=== PATIENT | female | born 1985 | race Caucasian/White ===

== ENCOUNTER 2023-10-11 10:52 | Emergency (ER) | payer BC ==
--- OUTSIDE RECORDS SUMMARY | 2023-10-11 10:55 | XMS REPORT | Continuity of Care Document ---
Author Name Unknown Address [address] [facility] [address] [place] [address] [facility] Address [address] [facility] [address] [place] [address] Care Team Providers Care Senior Buyer Planner Name Role Phone Harris Nazario Primary Care Physician [phone] RODNEY DIAZ Attending Clinician Unavailable APARNA KHAN Attending Clinician Unavailable KEYON CROWLEY Attending Clinician Unavailable MINDA RUIZ Attending Clinician Unavailab MINDA Spring Attending Clinician Unavailab JIMMIE Collins Attending Clinician Unavailable JIMMIE THORNTON Attending Clinician Unavailable CAMPBELL QUINTANILLA Attending Clinician Unavailable LULY SERNA Attending Clinician Unavailab le LAB90 Attending Clinician Unavailable SUELLEN RENO Attending Clinician Unavailable ANAHI ALEXANDRA Attending Clinician Unavailab diane SUBRAMANIAN MD Attending Clinician Unavailab JOSÉ ANTONIO Stanton Attending Clinician Unavailable OC GONZALEZ Attending Clinician Unavailable [facility] Attending Clinician Unavailable DANYELL FLORES II Attending Clinician Unavailab TRACY Zhong Attending Clinician Unavail able LEONEL PATRICIA Attending Clinician Unavailable COLLIN MADISON Attending Clinician Unavailable Collin Hilliard Attending Clinician Annmarie REARDON Deepa Dobson Attending Clinician Oz Clemente MD Attending Clinician [phone] Oz Clemente MD Admitting Clinician [phone] Payers Payer Name Policy Type Policy Number Effective Date Expirati on Date Source [employer] [place] OUT OF STATE [id number] 2017 00:00:00 BCBS 2 [id number] 2022 00:00:00 Problems Condition Name Condition Details Condition Category Status Onset Date Resolution Date Last Treatment Date Treating Clinician Comments Source Acute left-sided low back pain with left-sided sciatica Acute left-sided low back pain with left-sided sciatica Disease Active 10-10 00:00: 00 Lee Ann Larsen - Externa l Numbness of left lower extremity Numbness of left lower extremity Disease Active 10-10 00:00: 00 Lee Ann Larsen - Externa l Hair loss Hair loss Disease Active 08-15 00:00: 00 Lee Ann Masseyold - Externa l Skin cancer screening Skin cancer screening Disease Active 08-15 00:00: 00 Lee Ann Masseyold - Externa l Obesity Obesity Disease Active 09-14 00:00: 00 Lee Ann Sejonaold - Externa l Achilles tendinitis of right lower extremity Achilles tendinitis of right lower extremity Disease Active 09-14 00:00: 00 Lee Ann Masseyold - Externa l Acute pain of right knee Acute pain of right knee Disease Active 09-14 00:00: 00 Lee Ann Sejonaold - Externa l Measles, mumps, rubella (MMR) vaccinatio n status unknown Measles, mumps, rubella (MMR) vaccinatio n status unknown Disease Active 09-27 00:00: 00 [facility] History of depression History of depression Disease Active 09-27 00:00: 00 [facility] Headache after spinal puncture Headache after spinal puncture Disease Active 09-27 00:00: 00 [facility] 39 weeks gestation of 39 weeks gestation of Disease Active 09-26 00:00: 00 [facility] Short interval between pregnancie s affecting , antepartum Short interval between pregnancie s affecting , antepartum Disease Active 06-01 00:00: 00 [facility] Family history of congenital heart defect Family history of congenital heart defect Disease Active 06-01 00:00: 00 [facility] History of allergy to penicillin History of allergy to penicillin Disease Active 10-14 00:00: 00 [facility] History of allergy to penicillin History of allergy to penicillin Disease Active 10-14 00:00: 00 [facility] History of allergy to penicillin History of allergy to penicillin Disease Active 10-14 00:00: 00 [facility] 38 weeks gestation of 38 weeks gestation of Disease Active 09-15 00:00: 00 [facility] Obesity affecting in third trimester Obesity affecting in third trimester Disease Active 09-15 00:00: 00 [facility] Liveborn by vaginal delivery Liveborn infant by vaginal delivery Disease Active 09-15 00:00: 00 [facility] (spontaneo us vaginal delivery) (spontaneo us vaginal delivery) Disease Active 09-15 00:00: 00 [facility] (spontaneo us vaginal delivery) (spontaneo us vaginal delivery) Disease Active 09-15 00:00: 00 [facility] malpresent ation malpresent ation Disease Resolve d 09-15 00:00: 00 2017-09-16 00:00:00 2017-09-16 11:37:25 [facility] Unstable lie of fetus Unstable lie of fetus Disease Resolve d 09-15 00:00: 00 2017-09-16 00:00:00 2017-09-16 11:37:19 [facility] Obesity (BMI 30-39.9) Obesity (BMI 30-39.9) Disease Resolve d 09-15 00:00: 00 2017-09-16 00:00:00 2017-09-16 11:37:24 [facility] Allergies, Adverse Reactions, Alerts Allergy Name Allergy Type Status Severity Reaction(s) Onset Date Inactive Date Treating Clinician Comments Source Penicill in Propensi ty to adverse reaction s Active Anaphylaxis 09-15 00:00: 00 [facility] PENICILL IN DRUG INGREDI Active Anaphylaxis 09-15 00:00: 00 [facility] Penicill in Propensi ty to adverse reaction s Active Anaphylaxis 09-15 00:00: 00 [facility] Penicill in G Propensi ty to adverse reaction s Active Anaphylaxis 09-15 00:00: 00 Lee Ann Larsen - Externa l Social History Social Habit Start Date Stop Date Quantity Comments Source ASSERTION 2018-01-04 00:00:00 [facility] Gender identity Marie Larsen - External [facility] to SARS-CoV-2 (event) Not sure [facility] Alcoholic beverage intake 2023-10-09 00:00:00 2023-10-09 00:00:00 Current non-drinker of alcohol (finding) [facility] Alcohol intake 2023-03-21 00:00:00 2023-03-21 00:00:00 Ex-drinker (finding) Lee Ann Larsen - External History of Social function 2018-09-25 00:00:00 2018-09-25 00:00:00 [facility] Alcohol Comment 2018-03-09 00:00:00 2018-03-09 00:00:00 social [facility] Tobacco use and exposure 2017-09-15 00:00:00 2017-09-15 00:00:00 Smokeless tobacco non-user [facility] Sex assigned at 1985 00:00:00 1985 00:00:00 Tarun Larsen - External Smoking Status Start Date Stop Date Source Never smoked tobacco [facility] Medications Ordered Medication Name Filled Medication Name Start Date Stop Date Current Medication? Ordering Clinician Indication Dosage Frequency Signature (SIG) Comments Components Source diazePAM (Valium) 5 MG oral Tablet 10-10 10:39: 42 Yes 437 5mg [id number] 3D Take 1 tablet (5 mg total) by mouth every 8 hours as needed. Indication s: Muscle Spasm Lee Ann Larsen - Blanka luis fernando Naproxen 500 MG oral Tablet Delayed Response 10-10 10:39: 21 Yes 49 500mg Take 1 tablet (500 mg total) by mouth in the morning and 1 tablet (500 mg total) in the evening. Take with meals. Indication s: Pain. Lee Ann Parsona luis fernando HYDROcodone -Acetaminop hen ([place]) 10-325 MG oral Tablet 10-10 10:39: 07 Yes 1{tbl} Q.[id number] 3D Take 1 tablet by mouth every 8 hours as needed for pain. Lee Ann gould Lidocaine (LIDOCARE) 4 % patch 1 Patch 10-08 21:30: 00 10-09 09:29 :00 Yes 1{patch } 1 Patch, Topical, Administer over 12 Hours, ONCE, 1 dose, On 10/09/23 at 1630, Routine [facility] methocarbam oL (ROBAXIN) tablet 1,000 mg 10-08 20:45: 00 10-08 20:36 :00 No 1000mg 1,000 mg, Oral, ONCE, 1 dose, On 10/09/23 at 1545, JARRETT [facility] FENTanyl PF (SUBLIMAZE (PF)) injection 100 mcg 10-08 20:00: 00 10-08 19:12 :00 No 100ug 100 mcg, Intramuscu lar, ONCE, 1 dose, On 10/09/23 at 1500, Routine [facility] gabapentin (NEURONTIN) capsule 300 mg 10-08 19:15: 00 10-08 19:13 :00 No 300mg 300 mg, Oral, ONCE, 1 dose, [facility]09[facility]15[facility] (SUBLIMAZE (PF)) injection 50 mcg 10-08 18:15: 00 10-08 17:34 :00 No 50ug 50 mcg, Intramuscu lar, ONCE, 1 dose, On Tue10/09/23 at 1315, Routine [facility] diazePAM (VALIUM) tablet 5 mg 10-08 17:30: 00 10-08 17:34 :00 No 5mg 5 mg, Oral, ONCE, 1 dose, On Tue10/09/23 at 1230, JARRETT [facility] dexamethaso ne sod phos PF injection 10 mg 10-08 17:30: 00 10-08 17:33 :00 No 10mg 10 mg, Oral, ONCE, 1 dose, On Tue10/09/23 at 1230, 1 mL [facility] methocarbam oL 1,000 mg Tab 10-08 00:00: 00 Yes [id number] 1000mg Take 1,000 mg by mouth every 6 (six) hours as needed for Pain (scale 1-3). [facility] FENTanyl PF (SUBLIMAZE (PF)) injection 50 mcg 10-06 05:45: 00 10-06 04:53 :00 No 50ug 50 mcg, Slow IV Push, ONCE, 1 dose, On Tue10/07/23 at 0045, Routine [facility] iopamidol (ISOVUE 370-500 mL) injection 100 mL 10-06 05:30: 00 10-06 05:30 :00 No [id number] 100mL 100 mL, Intravenou s, ONCE, 1 dose, On Tue10/07/23 at 0030, Routine [facility] FENTanyl PF (SUBLIMAZE (PF)) injection 50 mcg 10-06 04:45: 00 10-06 03:50 :00 No 50ug 50 mcg, Slow IV Push, ONCE, 1 dose, On Tue10/06/23 at 2345, JARRETT [facility] diazePAM (VALIUM) injection 5 mg 10-06 01:45: 00 10-06 03:00 :00 No 5mg 5 mg, Slow IV Push, ONCE, 1 dose, On Tue10/06/23 at 2045, STAT [facility] dexamethaso ne sod phos PF injection 10 mg 10-06 01:45: 00 10-06 02:59 :00 No 10mg 10 mg, Slow IV Push, ONCE, 1 dose, On Jessy 10/06/23 at 2044, 1 mL [facility] diazePAM 5 mg tablet 10-06 00:00: 00 Yes [id number] 5mg Take 1 tablet by mouth 3 (three) times daily as needed for Muscle Spasms. [facility] naproxen sodium 550 mg tablet 10-06 00:00: 00 Yes [id number] 550mg Take 1 tablet by mouth in the morning and 1 tablet in the evening. Take with meals. [facility] HYDROcodone -acetaminop hen 10-325 mg tablet 10-06 00:00: 00 10-14 04:59 :00 Yes [id number] 1{tbl} Take 1 tablet by mouth every 6 (six) hours as needed for Pain (scale 7-10) for up to 7 days. Indication s: acute pain [facility] methylPREDN ISolone (Medrol) 4 MG oral Tablet Therapy Pack 09-18 00:00: 00 10-10 00:00 :00 No [id number] 1{navin} QD Take 1 navin by mouth daily As directed. Lee Ann gould Gabapentin 100 MG oral Capsule 09-18 00:00: 00 10-10 00:00 :00 No [id number] 100mg Q.[id number] 3D Take 1 capsule (100 mg total) by mouth 3 times daily as needed. Lee Ann gould Tizanidine HCl 4 MG oral Tablet 09-18 00:00: 00 10-10 00:00 :00 No [id number] 4mg Q.[id number] 3D Take 1 tablet (4 mg total) by mouth every 8 hours as needed for muscle spasms. Lee Ann gould Semaglutide -Weight Management (Wegovy) 1.7 MG/0.75ML subcutaneou s Solution Auto-inject or 4-08 00:00: 00 Yes [id number] 1.7mg Q1W Inject 1.7 mg into the skin once a week. Lee Ann gould Pseudoeph-B romphen-DM 30-2-10 MG/5ML oral Syrup 1-25 00:00: 00 08-15 00:00 :00 No [id number] 10mL Q.25D Take 10 mL by mouth 4 times daily as needed. Lee Ann gould methylPREDN ISolone (Medrol) 4 MG oral Tablet Therapy Pack - 00:00: 00 08-15 00:00 :00 No [id number] 1{navin} Take 1 navin by mouth daily As directed. Lee Ann gould Semaglutide -Weight Management (Wegovy) 1.7 MG/0.75ML subcutaneou s Solution Auto-inject or 23 00:00: 00 Yes [id number] 1.7mg Inject 1.7 mg into the skin once a week. Lee Ann gould Semaglutide -Weight Management (Wegovy) 1 MG/0.5ML subcutaneou s Solution Auto-inject or 2022-03 00:00: 00 Yes [id number] 1mg Inject 1 mg into the skin once a week. Lee Ann gould Semaglutide -WEGOVY-Cornelius ght Management 0.5 MG/0.5ML Subcutaneou s Solution Auto-inject or 2022-03 018 00:00: 00 Yes [id number] .5mg Inject 0.5 mg into the skin once a week. Lee Ann gould Semaglutide -WEGOVY-Cornelius ght Management 0.25 MG/0.5ML Subcutaneou s Solution Auto-inject or 2022-03 0-11 00:00: 00 12-22 00:00 :00 No [id number] .25mg Inject 0.25 mg into the skin once a week. Lee Ann gould Semaglutide -WEGOVY-Cornelius ght Management 0.25 MG/0.5ML Subcutaneou s Solution Auto-inject or 09-14 00:00: 00 Yes [id number] .25mg Inject 0.25 mg into the skin once a week Lee Ann golud Naproxen 500 MG oral Tablet 09-02 00:00: 00 Yes [id number] 105 500mg Take 1 tablet (500 mg total) by mouth in the morning and 1 tablet (500 mg total) in the evening. Take with meals. Lee Ann gould HYDROcodone -acetaminop hen (NORCO 5) 5-325 mg tablet 1 tablet 11-19 23:00: 00 11-19 22:20 :00 No 1{tbl} 1 tablet, Oral, ONCE, 1 dose, Tue11/20/19 at 1800, JARRETT [facility] acetaminoph en-codeine 300-30 mg tablet 11-19 00:00: 00 Yes [id number] 1{tbl} Take 1 tablet by mouth every 4 (four) hours as needed for Pain (scale 4-6). Indication s: acute pain [facility] acetaminoph en (TYLENOL) 325 mg tablet 09-28 14:18: 29 09-28 00:00 :00 No Take by mouth every 6 (six) hours as needed. [facility] Iron Fum & P-FA-Vit B & C No.9 (INTEGRA PLUS) 125 mg iron- 1 mg Cap 09-28 00:00: 00 Yes [id number] 1{capsu le} Take 1 capsule by mouth daily. [facility] docusate calcium 240 mg capsule 09-28 00:00: 00 Yes [id number] 240mg Take 1 capsule by mouth once daily as needed for Constipati on. [facility] ibuprofen 600 mg tablet 09-28 00:00: 00 Yes [id number] 600mg Take 1 tablet by mouth every 6 (six) hours as needed for Pain (scale 1-3) or Pain (scale 4-6) (Pain). Take with food or milk. [facility] butalbital- acetaminoph en-caff 50-325-40 mg tablet 09-28 00:00: 00 Yes [id number] 1{tbl} Take 1 tablet by mouth every 6 (six) hours as needed for Pain (scale 7-10) (headache) . [facility] Iron Fum & P-FA-Vit B & C No.9 (INTEGRA PLUS) 125 mg iron- 1 mg Cap 09-28 00:00: 00 Yes [id number] 1{capsu le} Take 1 capsule by mouth daily. [facility] butalbital- acetaminoph en-caff (ESGIC) 50-325-40 mg tablet 1 tablet 09-27 23:00: 00 Yes 1{tbl} 1 tablet, Oral, Q4H, First dose on Tue09/27/18 at 1800, Until Discontinu ed, Routine [facility] butalbital- acetaminoph en-caff (ESGIC) 50-325-40 mg tablet 1 tablet 09-27 08:21: 01 Yes 1{tbl} 1 tablet, Oral, Q4HPRN, Starting Tue09/27/18 at 0321, Until Discontinu ed, Routine, Headache [facility] butalbital- acetaminoph en-caff (ESGIC) 50-325-40 mg tablet 1 tablet 09-27 04:20: 00 09-27 04:30 :00 No 1{tbl} 1 tablet, Oral, ONCE, 1 dose, Tue09/26/18 at 2330, Routine [facility] diphenhydrA MINE (BENADRYL) tablet 25 mg 09-26 23:09: 03 Yes 25mg 25 mg, Oral, Q6HPRN, Starting Tue09/26/18 at 1809, Until Discontinu ed, Routine, Sleep, Itching [facility] ondansetron (ZOFRAN (PF)) injection 4 mg 09-26 23:09: 03 Yes 4mg 4 mg, Slow IV Push, Q8HPRN, Starting Tue09/26/18 at 1809, Until Discontinu ed, Routine, Nausea and Vomiting (N/V) [facility] simethicone (GAS RELIEF) chewable tablet 160 mg 09-26 23:09: 03 Yes 160mg 160 mg, Oral, PC+HSPRN, Starting Tue09/26/18 at 1809, Until Discontinu ed, Routine, Gas [facility] docusate calcium (SURFAK) capsule 240 mg 09-26 23:09: 03 Yes 240mg 240 mg, Oral, QDAILYPRN, Starting Tue09/26/18 at 1809, Until Discontinu ed, Routine, Constipati on [facility] magnesium hydroxide (MILK OF MAGNESIA) 400 mg/5 mL suspension 30 mL 09-26 23:09: 03 Yes 30mL 30 mL, Oral, QDAILYPRN, Starting Tue09/26/18 at 1809, Until Discontinu ed, Routine, Constipati on [facility] acetaminoph en (TYLENOL) tablet 650 mg 09-26 23:09: 02 Yes 650mg 650 mg, Oral, Q6HPRN, Starting Tue09/26/18 at 1809, Until Discontinu ed, Routine, Pain (scale 1-3) [facility] benzocaine- menthol (DERMOPLAST ) 20-0.5 % topical spray 09-26 23:09: 02 Yes Topical, PRN, Starting Tue09/26/18 at 1809, Until Discontinu ed, Routine, Perineum discomfort [facility] ibuprofen (IBU) tablet 600 mg 09-26 22:41: 36 Yes 600mg 600 mg, Oral, Q6HPRN, Starting Tue09/26/18 at 1741, Until Discontinu ed, Routine, Pain (scale 4-6) [facility] LR 1000 mL + oxytocin 20 units IV Solution 09-26 22:15: 00 09-26 23:09 :07 No at 999 mL/hr, IV Infusion, ONCE, 1 dose, [facility] 09/26/18 at 1715, Routine [facility] lactated ringers IV infusion 500 mL 09-26 21:30: 00 09-26 20:28 :00 No 500mL at 999 mL/hr, 500 mL, IV Infusion, ONCE, 1 dose, 09/26/18 at 1630, Routine [facility] LR 1000 mL + oxytocin 20 units IV Solution 09-26 13:19: 04 09-26 23:09 :07 No 2mU/min 2 angel-unit s/min (6 mL/hr), at 6 mL/hr, IV Infusion, TITRATE, Starting 09/26/18 at 0819, Until 09/26/18 at 1809, JARRETT, Oxytocin Induction / Augmentati on of Labor. [facility] D5W-LR IV infusion 1,000 mL 09-26 13:00: 00 09-26 23:09 :07 No 1000mL at 125 mL/hr, IV Infusion, CONTINUOUS , Starting 09/26/18 at 0800, Until 09/26/18 at 1809, Routine [facility] sodium citrate-cit wan acid (BICITRA) 500-334 mg/5 mL solution 30 mL 09-26 12:55: 08 09-26 20:23 :00 No 30mL 30 mL, Oral, PRE-PROCED URE ONCE, 1 dose, Starting 09/26/18 at 0755, Until Discontinu ed, Routine, Surgery/Pr ocedure [facility] vitamin w/FA tablet 09-16 00:00: 00 09-28 00:00 :00 No 1{tbl} Take 1 tablet by mouth daily. [facility] Immunizations Ordered Immunization Name Filled Immunization Name Date Status Comments Source Tdap- (Boostrix, Adacel) 2018-07-20 00:00:00 Completed Lee Ann Larsen - External Tdap- (Boostrix, Adacel) 2018-07-20 00:00:00 Completed Lee Ann Larsen - External Tdap- (Boostrix, Adacel) 2018-07-20 00:00:00 Completed Lee Ann Larsen - External Tdap- (Boostrix, Adacel) 2018-07-20 00:00:00 Completed Lee Ann Larsen - External TDAP 2018-07-20 00:00:00 Completed [facility] TDAP 2018-07-20 00:00:00 Completed [facility] TDAP 2018-07-20 00:00:00 Completed [facility] TDAP 2018-07-20 00:00:00 Completed [facility] TDAP 2018-07-20 00:00:00 Completed [facility] TDAP 2018-07-20 00:00:00 Completed [facility] TDAP 2018-07-20 00:00:00 Completed [facility] TDAP 2018-07-20 00:00:00 Completed [facility] TDAP 2018-07-20 00:00:00 Completed [facility] Tdap 2018-07-20 00:00:00 Completed [facility] PPD-Protein Derivative (Purified)- Tuberculin Unknown Completed [facility] - External Influenza Virus Vaccine, Egg Free Unknown Completed Lee Ann carcamo - External U9S6-ES (Up To Age 3) Unknown Completed Lee Ann jonaold - External [id number]-YV (Up To Age 3) Unknown Completed [facility] Ann [facility] - External Tdap- (Boostrix, Adacel) Unknown Completed [facility] Tdap- (Boostrix, Adacel) Unknown Completed [facility] - External Meningococcal Vaccine- Conjugate(Menactra) Unknown Completed Lee Ann S santinobold - External PPD-Protein Derivative (Purified)- Tuberculin Unknown Completed [facility] - External Influenza Virus Vaccine, Egg Free Unknown Completed Lee Ann michelle carcamo - External [id number]-OI (Up To Age 3) Unknown Completed [facility] R2S8-SV (Up To Age 3) Unknown Completed [facility] - External Tdap- (Boostrix, Adacel) Unknown Completed Lee Ann ybold - External Tdap- (Boostrix, Adacel) Unknown Completed [facility] - External Meningococcal Vaccine- Conjugate(Menactra) Unknown Completed Lee Ann Bronson debo - External PPD-Protein Derivative (Purified)- Tuberculin Unknown Completed [facility] - External Influenza Virus Vaccine, Egg Free Unknown Completed Lee Ann carcamo - External [id number]-WA (Up To Age 3) Unknown Completed Lee Ann ybold - External L2O3-XK (Up To Age 3) Unknown Completed [facility] Ann [facility] - External Tdap- (Boostrix, Adacel) Unknown Completed [facility] Tdap- (Boostrix, Adacel) Unknown Com[facility] Meningococcal Vaccine- Conjugate(Menactra) Unknown Completed Lee Ann Dobson [facility] - External PPD-Protein Derivative (Purified)- Tuberculin Unknown Com[facility] Influenza Virus Vaccine, Egg Free Unknown Completed Lee Ann carcamo - External L2N7-PD (Up To Age 3) Unknown Completed Lee Ann Masseyold - External [id number]-YB (Up To Age 3) Unknown Completed [facility] Ann [facility] - External Tdap- (Boostrix, Adacel) Unknown Completed [facility] Ann [facility] - External Tdap- (Boostrix, Adacel) Unknown Completed [facility] - External Meningococcal Vaccine- Conjugate(Menactra) Unknown Completed Lee Ann Dobson [facility] - External PPD-Protein Derivative (Purified)- Tuberculin Unknown Completed [facility] - External Influenza Virus Vaccine, Egg Free Unknown Completed Lee Ann carcamo - External U2Y9-YE (Up To Age 3) Unknown Com[facility] N7N6-MT (Up To Age 3) Unknown Completed [facility] Tdap- (Boostrix, Adacel) Unknown Completed [facility] - External Tdap- (Boostrix, Adacel) Unknown Com[facility] - External Meningococcal Vaccine- Conjugate(Menactra) Unknown Completed Lee Ann debo - External PPD-Protein Derivative (Purified)- Tuberculin Unknown Com[facility] Influenza Virus Vaccine, Egg Free Unknown Completed Lee Ann carcamo - External P8W9-XD (Up To Age 3) Unknown Completed Lee Ann Masseyold - External J7A6-LL (Up To Age 3) Unknown Completed [facility] Tdap- (Boostrix, Adacel) Unknown Completed [facility] Tdap- (Boostrix, Adacel) Unknown Com[facility] - External Meningococcal Vaccine- Conjugate(Menactra) Unknown Completed Lee Ann Dobson eybold - External PPD-Protein Derivative (Purified)- Tuberculin Unknown Com[facility] Influenza Virus Vaccine, Egg Free Unknown Completed Lee Ann carcamo - External W3S1-EU (Up To Age 3) Unknown Completed Lee Ann Seybold - External K6J0-CW (Up To Age 3) Unknown Completed Lee Ann Masseyold - External Tdap- (Boostrix, Adacel) Unknown Completed Lee Ann Masseyold - External Tdap- (Boostrix, Adacel) Unknown Completed Lee Ann Bergerybgianfranco - External Meningococcal Vaccine- Conjugate(Menactra) Unknown Completed Lee Ann debold - External PPD-Protein Derivative (Purified)- Tuberculin Unknown Completed Lee Ann Larsen - External Influenza Virus Vaccine, Egg Free Unknown Completed Lee Ann Fierro bold - External F6M1-ZK (Up To Age 3) Unknown Completed Lee Ann Larsen - External Z9A5-ML (Up To Age 3) Unknown Completed Lee Ann Larsen - External Tdap- (Boostrix, Adacel) Unknown Completed Lee Ann Larsen - External Tdap- (Boostrix, Adacel) Unknown Completed Lee Ann Larsen - External Meningococcal Vaccine- Conjugate(Menactra) Unknown Completed Lee Ann debold - External TDAP Unknown Completed [facility] SARS-COV-2 COVID-19 PFIZER VACCINE Unknown Completed [facility] SARS-COV-2 COVID-19 PFIZER VACCINE Unknown Completed [facility] TDAP Unknown Completed [facility] SARS-COV-2 COVID-19 PFIZER VACCINE Unknown Completed [facility] SARS-COV-2 COVID-19 PFIZER VACCINE Unknown Completed [facility] Vital Signs Vital Name Observation Time Observation Value Comments S ource Systolic blood pressure 2023-10-09 21:00:00 103 mm[Hg] [facility] Diastolic blood pressure 2023-10-09 21:00:00 70 mm[Hg] [facility] Heart rate 2023-10-09 21:00:00 71 /min [facility] Respiratory rate 2023-10-09 21:00:00 14 /min [facility] Oxygen saturation in Arterial blood by Pulse oximetry 2023-10-09 21:00:00 99 /min [facility] Body temperature 2023-10-09 17:17:00 37 Griselda [facility] Body height 2023-10-09 17:17:00 167.6 cm [facility] Body weight 2023-10-09 17:17:00 77.111 kg [facility] BMI 2023-10-09 17:17:00 27.44 kg/m2 [facility] Systolic blood pressure 2023-10-07 06:00:00 105 mm[Hg] [facility] Diastolic blood pressure 2023-10-07 06:00:00 64 mm[Hg] [facility] Heart rate 2023-10-07 06:00:00 62 /min [facility] Body temperature 2023-10-07 06:00:00 37.11 [facility] Respiratory rate 2023-10-07 06:00:00 15 /min [facility] Oxygen saturation in Arterial blood by Pulse oximetry 2023-10-07 06:00:00 96 /min [facility] Body height 2023-10-06 23:43:00 167.6 cm [facility] Body weight 2023-10-06 23:43:00 77.248 kg [facility] BMI 2023-10-06 23:43:00 27.49 kg/m2 [facility] Systolic blood pressure 2023-08-16 15:53:00 124 mm[Hg] [facility] - External Diastolic blood pressure 2023-08-16 15:53:00 78 mm[Hg] [facility] Seybo ld - External Heart rate 2023-08-16 15:53:00 70 /min Kelse y Seybold - External Body temperature 2023-08-16 15:53:00 36.61 Griselda Lee Ann Seybold - External Respiratory rate 2023-08-16 15:53:00 18 /min Lee Ann Seybold - External Body height 2023-08-16 15:53:00 167.6 cm Marie ey Seybold - External Body weight 2023-08-16 15:53:00 78.926 kg Marie ey Seybold - External BMI 2023-08-16 15:53:00 28.08 kg/m2 Marie ey Seybold - External Oxygen saturation in Arterial blood by Pulse oximetry 2023-08-16 15:53:00 98 /min Lee Ann Seybo ld - External Systolic blood pressure 2023-02-23 18:59:00 124 mm[Hg] [facility] Seybo ld - External Diastolic blood pressure 2023-02-23 18:59:00 82 mm[Hg] Lee Ann ybo ld - External Heart rate 2023-02-23 18:59:00 90 /min Kelse y Seybold - External Body temperature 2023-02-23 18:59:00 37.06 Griselda Lee Ann Seybold - External Respiratory rate 2023-02-23 18:59:00 18 /min Lee Ann Seybold - External Body height 2023-02-23 18:59:00 167.6 cm Marie ey Seybold - External Body weight 2023-02-23 18:59:00 93.441 kg Marie ey Seybold - External BMI 2023-02-23 18:59:00 33.25 kg/m2 Marie ey Seybold - External Body height 2022-12-24 16:11:00 167.6 cm Marie ey Seybold - External Body weight 2022-12-24 16:11:00 93.441 kg Marie ey Seybold - External BMI 2022-12-24 16:11:00 33.25 kg/m2 Marie ey Seybold - External Systolic blood pressure 2022-12-22 21:02:00 137 mm[Hg] Lee Ann Seybo ld - External Diastolic blood pressure 2022-12-22 21:02:00 77 mm[Hg] Lee Ann Bergerybo ld - External Heart rate 2022-12-22 21:02:00 74 /min Kelse y Seybold - External Body temperature 2022-12-22 21:02:00 37.06 Griselda Lee Ann Seybold - External Respiratory rate 2022-12-22 21:02:00 15 /min Lee Ann Seybold - External Body height 2022-12-22 21:02:00 167.6 cm Marie ey Seybold - External Body weight 2022-12-22 21:02:00 93.441 kg Marie ey Seybold - External BMI 2022-12-22 21:02:00 33.25 kg/m2 Marie ey Seybold - External Oxygen saturation in Arterial blood by Pulse oximetry 2022-12-22 21:02:00 99 /min Lee Ann Bergerybo ld - External Systolic blood pressure 2022-09-14 21:20:00 125 mm[Hg] Lee Ann Seybo ld - External Diastolic blood pressure 2022-09-14 21:20:00 74 mm[Hg] Lee Ann Seybo ld - External Heart rate 2022-09-14 21:20:00 76 /min Kelse y Seybold - External Body temperature 2022-09-14 21:20:00 36.61 Griselda Lee Ann Seybold - External Respiratory rate 2022-09-14 21:20:00 14 /min Lee Ann Seybold - External Body height 2022-09-14 21:20:00 167.6 cm Marie ey Seybold - External Body weight 2022-09-14 21:20:00 102.967 kg Marie ey Seybold - External BMI 2022-09-14 21:20:00 36.64 kg/m2 Marie ey Seybold - External Oxygen saturation in Arterial blood by Pulse oximetry 2022-09-14 21:20:00 99 /min Lee Ann Seybo ld - External Systolic blood pressure 2022-09-13 20:49:00 150 mm[Hg] Lee Ann Seybo ld - External Diastolic blood pressure 2022-09-13 20:49:00 84 mm[Hg] Lee Ann Seybo ld - External Heart rate 2022-09-13 20:49:00 101 /min Kelse y Seybold - External Respiratory rate 2022-09-13 20:49:00 20 /min Lee Ann Seybold - External Body height 2022-09-13 20:49:00 167.6 cm Marie ey Seybold - External Body weight 2022-09-13 20:49:00 101.606 kg Marie ey Seybold - External BMI 2022-09-13 20:49:00 36.15 kg/m2 Marie ey Seybold - External Systolic blood pressure 2022-08-31 20:35:00 129 mm[Hg] Lee Ann Seybo ld - External Diastolic blood pressure 2022-08-31 20:35:00 78 mm[Hg] Lee Ann Seybo ld - External Heart rate 2022-08-31 20:35:00 87 /min Kelse y Seybold - External Body temperature 2022-08-31 20:35:00 37.11 Griselda Lee Ann Seybold - External Respiratory rate 2022-08-31 20:35:00 14 /min Lee Ann Seybold - External Body height 2022-08-31 20:35:00 167.6 cm Marie ey Seybold - External Body weight 2022-08-31 20:35:00 101.606 kg Marie ey Seybold - External BMI 2022-08-31 20:35:00 36.15 kg/m2 Marie ey Seybold - External Oxygen saturation in Arterial blood by Pulse oximetry 2022-08-31 20:35:00 99 /min Lee Ann Seybo ld - External Systolic blood pressure 2022-08-19 16:15:00 132 mm[Hg] [facility] Seybo ld - External Diastolic blood pressure 2022-08-19 16:15:00 90 mm[Hg] [facility] Seybo ld - External Heart rate 2022-08-19 16:15:00 82 /min Terri y Seybold - External Body temperature 2022-08-19 16:15:00 37.06 Griselda Lee Ann Seybold - External Respiratory rate 2022-08-19 16:15:00 16 /min Lee Ann Seybold - External Body height 2022-08-19 16:15:00 167.6 cm Marie ey Seybold - External Body weight 2022-08-19 16:15:00 101.787 kg Marie ey Seybold - External BMI 2022-08-19 16:15:00 36.22 kg/m2 Marie ey Seybold - External Oxygen saturation in Arterial blood by Pulse oximetry 2022-08-19 16:15:00 98 /min Lee Ann Bergerybo ld - External Systolic blood pressure 2019-12-11 21:23:00 124 mm[Hg] [facility] Diastolic blood pressure 2019-12-11 21:23:00 88 mm[Hg] [facility] Heart rate 2019-12-11 21:23:00 74 [facility] height 2019-12-11 21:23:00 167.6 cm [facility] Body weight 2019-12-11 21:23:00 98.884 kg [facility] BMI 2019-12-11 21:23:00 35.19 kg/m2 [facility] Systolic blood pressure 2019-11-29 20:45:00 126 mm[Hg] [facility] Diastolic blood pressure 2019-11-29 20:45:00 82 mm[Hg] [facility] Heart rate 2019-11-29 20:45:00 76 /min [facility] Body height 2019-11-29 20:45:00 167.6 cm [facility] Body weight 2019-11-29 20:45:00 98.884 kg [facility] BMI 2019-11-29 20:45:00 35.19 kg/m2 [facility] Systolic blood pressure 2019-11-22 20:04:00 122 mm[Hg] [facility] Diastolic blood pressure 2019-11-22 20:04:00 81 mm[Hg] [facility] Heart rate 2019-11-22 20:04:00 78 /min [facility] Body weight 2019-11-22 20:04:00 98.884 kg [facility] BMI 2019-11-22 20:04:00 35.19 kg/m2 [facility] Heart rate 2019-11-20 21:18:00 87 /min [facility] Body temperature 2019-11-20 21:18:00 37.5 Grisel[facility] Respiratory rate 2019-11-20 21:18:00 16 /min [facility] Body height 2019-11-20 21:18:00 167.6 cm [facility] Body weight 2019-11-20 21:18:00 98.884 kg [facility] BMI 2019-11-20 21:18:00 35.19 kg/m2 [facility] Oxygen saturation in Arterial blood by Pulse oximetry 2019-11-20 21:18:00 100 /min [facility] Systolic blood pressure 2018-09-29 14:00:00 132 mm[Hg] [facility] Diastolic blood pressure 2018-09-29 14:00:00 71 mm[Hg] [facility] Heart rate 2018-09-29 14:00:00 79 /min [facility] Body temperature 2018-09-29 14:00:00 36.89 Grisel[facility] Respiratory rate 2018-09-29 14:00:00 20 /min [facility] Oxygen saturation in Arterial blood by Pulse oximetry 2018-09-29 14:00:00 100 /min [facility] Systolic blood pressure 2018-09-29 14:00:00 132 mm[Hg] [facility] Diastolic blood pressure 2018-09-29 14:00:00 71 mm[Hg] [facility] Heart rate 2018-09-29 14:00:00 79 /min [facility] Body temperature 2018-09-29 14:00:00 36.89 Grisel[facility] Respiratory rate 2018-09-29 14:00:00 20 /min [facility] Oxygen saturation in Arterial blood by Pulse oximetry 2018-09-29 14:00:00 100 /min [facility] Procedures Procedure Date / Time Performed Performing Clinician Source XR PELVIS <3 VW 2023-10-09 18:07:38 Minda Ruiz [facility] CT CHEST PULMONARY ANGIOGRAM 2023-10-07 04:44:39 Jimmie Thornton [facility] POCT TEST 2023-10-07 04:38:00 Jimmie Thornton [facility] URINALYSIS 2023-10-07 04:35:00 Jimmie Thornton [facility] COMP. METABOLIC PANEL (16756) 2023-10-07 03:15:00 Jimmie Thornton [facility] CBC WITH DIFF 2023-10-07 03:15:00 Jimmie Thornton [facility] D-DIMER 2023-10-07 03:15:00 Jimmie Thornton [facility] XR ELBOW <3 VW LEFT 2019-12-11 21:18:41 Collin Madison [facility] XR ELBOW <3 VW LEFT 2019-11-29 20:50:44 Collin Madison [facility] XR FOREARM 2 VW LEFT 2019-11-20 21:53:57 Deepa Anguiano [facility] NOTICE OF PRIVACY PRACTICES 2019-11-20 21:31:37 Doctor Unassigned, [place] [facility] CONSENT/REFUSAL FOR DIAGNOSIS AND TREATMENT 2019-11-20 21:09:50 Doctor Unassigned, [place] [facility] CBC WITH DIFFERENTIAL 2018-09-27 05:34:00 Ya Silva [facility] VENOUS CORD GAS 2018-09-26 21:16:00 Ya Silva [facility] RUBELLA SCREEN IGG 2018-09-26 13:16:00 [facility] HEPATITIS B SURFACE ANTIGEN 2018-09-26 13:16:00 Ya Silva [facility] HIV 1/2 AG-AB WITH REFLEX 2018-09-26 13:16:00 Rebecca Christian [facility] GALV ONLY - SYPHILIS IGG/IGM 2018-09-26 13:16:00 Ya Silva [facility] TYPE AND SCREEN 2018-09-26 13:14:00 Ya Silva [facility] Plan of Care Planned Activity Planned Date Details Comments Source Encounters Start Date/Time End Date/Time Encounter Type Admission Type Attending Clinicians Care Facility Care Department Encounter ID Source 2021-01-02 17:42:40 Emergency [facility] [id number] [facility] 2023-11-25 16:00:00 2023-11-25 16:00:00 Outpatient RODNEY DIAZ [id number] [facility] 2023-10-11 15:15:00 2023-10-11 15:15:00 Outpatient APARNA KHAN [id number] [facility] 2023-10-11 00:00:00 2023-10-11 00:00:00 Outpatient KEYON CROWLEY [id number] [facility] 2023-10-09 12:22:00 2023-10-09 16:32:00 Emergency X MINDA RUIZ SANDRA [facility] [id number] [facility] 2023-10-09 12:22:00 2023-10-09 16:32:00 Emergency Minda Ruiz [facility] [id number] [id number] [id number] [id number] [facility] 2023-10-06 18:45:00 2023-10-07 01:42:00 Emergency X JIMMIE THORNTON WAKILI [facility] [id number] [facility] 2023-10-06 18:45:00 2023-10-07 01:42:00 Emergency Jimmie Thornton S [facility] [id number] 350.1.13.10 [id number] [id number] [facility] 2023-09-23 00:00:00 2023-09-23 00:00:00 Outpatient [facility] [id number] [facility]23-09-19 13:30:00 2023-09-19 13:30:00 Outpatient CAMPBELL QUINTANILLA [id number] [facility] 2023-09-15 11:00:00 2023-09-15 11:00:00 Outpatient LULY SERNA [id number] [facility] 2023-08-16 11:50:00 2023-08-16 11:50:00 Outpatient CURLY TABOR [id number] [facility] 2023-08-16 11:00:00 2023-08-16 11:00:00 Outpatient LULY SERNA [id number] [facility] 2023-07-19 15:30:00 2023-07-19 15:30:00 Outpatient PREZAAPARNA Dobson [id number] [facility] 2023-06-11 00:00:00 2023-06-11 00:00:00 Outpatient APARNA KHAN [id number] [facility] 2023-06-11 00:00:00 2023-06-11 00:00:00 Outpatient ALFREDZAAPARNA Dobson [id number] [facility] 2023-06-06 08:15:00 2023-06-06 08:15:00 Outpatient PREZAS, APARNA LEE ANN TABOR [id number] [facility] 2023 11:10:00 2023 11:10:00 Outpatient VIVEK RENOSUMANJONATNA TABOR [id number] [facility] 2023-04-15 09:15:00 2023-04-15 09:15:00 Outpatient ANAHI ALEXANDRA [id number] [facility] 2023-03-31 08:15:00 2023-03-31 08:15:00 Outpatient CAMPBELL QUINTANILLA [id number] [facility] 2023-03-30 00:00:00 2023-03-30 00:00:00 Outpatient ANAHI ALEXANDRA [id number] [facility] 2023-03-30 00:00:00 2023-03-30 00:00:00 Outpatient MD LEE ANN LITTLEJOHN [id number] [facility] 2023-03-29 00:00:00 2023-03-29 00:00:00 Outpatient PREZASAPARNA [id number] [facility] 2023-03-28 00:00:00 2023-03-28 00:00:00 Outpatient PREZAS, APARNA TABOR [id number] [facility] 2023-03-27 00:00:00 2023-03-27 00:00:00 Outpatient PREZAS, APARNA TABOR [id number] [facility] 2023-03-21 16:30:00 2023-03-21 16:30:00 Outpatient JOSÉ ANTONIO WEAVER [id number] [facility] 2023-03-21 10:45:00 2023-03-21 10:45:00 Outpatient PREZASAPARNA [id number] [facility] 2023-02-23 13:00:00 2023-02-23 13:00:00 Outpatient ANAHI ALEXANDRA [id number] [facility] 2023-01-31 00:00:00 2023-01-31 00:00:00 Outpatient PREZAS, APARNA LEE ANN TABOR [id number] [facility] 2023-01-24 10:00:00 2023-01-24 10:00:00 Outpatient NASRIN, ANAHI TABOR [id number] [facility] 2023-01-22 00:00:00 2023-01-22 00:00:00 Outpatient PREZAS, APARNA LEE ANN TABOR [id number] [facility] 2022-12-29 00:00:00 2022-12-29 00:00:00 Outpatient PREZAS, APARNAALLEY TABOR [id number] [facility] 2022-12-24 11:20:00 2022-12-24 11:20:00 Outpatient LEE ANN TABOR [id number] [facility] 2022-12-24 11:00:00 2022-12-24 11:00:00 Outpatient CARLOSOC ZAFAR LEE ANN TABOR [id number] [facility] 2022-12-24 00:00:00 2022-12-24 00:00:00 Outpatient CARLOSVAL ZAFARCORNEL TABOR [id number] [facility] 2022-12-22 16:00:00 2022-12-22 16:00:00 Outpatient PREZAS, APARNAALLEY TABOR [id number] [facility] 2022-12-15 00:00:00 2022-12-15 00:00:00 Outpatient PREZAS, APARNAALLEY TABOR [id number] [facility] 2022-12-03 08:45:00 2022-12-03 08:45:00 Outpatient NASRINANAHI Payne LEE ANN TABOR [id number] [facility] 2022-11-22 16:15:00 2022-11-22 16:15:00 Outpatient PREZAS, APARNA TABOR [id number] [facility] 2022-11-15 00:00:00 2022-11-15 00:00:00 Outpatient PREZAS, APARNA TABOR [id number] [facility] 2022-10-15 15:30:00 2022-10-15 15:30:00 Outpatient CARLOSOC KUHN LEE ANN TABOR [id number] [facility] 2022-10-12 16:00:00 2022-10-12 16:00:00 Outpatient PREZAAPARNA Dobson LEE ANN TABOR [id number] [facility] 2022-10-02 00:00:00 2022-10-02 00:00:00 Outpatient PREZAS, APARNA LEE ANN TABOR [id number] [facility] 2022-09-28 00:00:00 2022-09-28 00:00:00 Outpatient PREZAS, APARNA LEE ANN TABOR [id number] [facility] 2022-09-24 00:00:00 2022-09-24 00:00:00 Outpatient PREZAS, APARNA LEE ANN TABOR [id number] [facility] 2022-09-14 16:45:00 2022-09-14 16:45:00 Outpatient PREZAS, APARNA LEE ANN TABOR [id number] [facility] 2022-09-13 16:45:00 2022-09-13 16:45:00 Out[facility] TAB[id number] [facility]22-[facility]-13 16:00:00 2022-09-13 16:00:00 Outpatient DANYELL FLORES II [id number] [facility] 2022-09-09 00:00:00 2022-09-09 00:00:00 Outpatient MD LEE ANN LITTLEJOHN [id number] [facility] 2022-09-03 00:00:00 2022-09-03 00:00:00 Outpatient PREZABronson APARNA TABOR [id number] [facility] 2022-09-02 11:45:00 2022-09-02 11:45:00 Outpatient TRACY AVILA [id number] [facility] 2022-09-02 00:00:00 2022-09-02 00:00:00 Outpatient LEONEL PATRICIA [id number] [facility] 2022-09-01 09:00:00 2022-09-01 09:00:00 Outpatient HARSHADLEONEL Stewart [id number] [facility] 2022-09-01 00:00:00 2022-09-01 00:00:00 Outpatient APARNA KHAN [id number] [facility] 2022-08-31 16:15:00 2022-08-31 16:15:00 Outpatient LAB90 LEE ANN TABOR [id number] [facility] 2022-08-31 15:30:00 2022-08-31 15:30:00 Outpatient HARSHADLEONEL DUMONT [id number] [facility] 2022-08-28 00:00:00 2022-08-28 00:00:00 Outpatient APARNA KHAN [id number] [facility] 2022-08-19 11:15:00 2022-08-19 11:15:00 Outpatient HARSHADLEONEL DUMONT [id number] [facility] 2020-07-14 12:10:00 2020-07-14 12:10:00 Outpatient [facility] [id number] [facility] 2020-07-12 12:10:00 2020-07-12 12:10:00 Outpatient [facility] [id number] [facility] 2020-06-21 12:00:00 2020-06-21 12:00:00 Outpatient [facility] [id number] [facility] 2020-01-07 16:00:00 2020-01-07 16:00:00 Outpatient COLLIN PIÑA [facility] [id number] [facility] 2020-01-01 16:00:00 2020-01-01 16:00:00 Outpatient COLLIN PIÑA [facility] [id number] [facility] 2019-12-11 16:18:40 2019-12-11 23:59:00 Hospital Collin Rothman [facility] [id number] 350.1.13.10 4.2.7.2.686 [id number] [facility] 2019-12-11 16:18:26 2019-12-11 16:34:56 Office Visit Collin Madison [facility] Surgical Specialjuanjo Carrington 1.2.840.114 350.1.13.10 4.2.7.2.686 [id number] [facility] 2019-12-11 16:15:00 2019-12-11 16:15:00 Outpatient R COLLIN MADISON [facility] [id number] [facility] 2019-11-29 15:50:43 2019-11-29 23:59:00 Hospital Encounter Collin Madison [facility] Surgical Specialjuanjo Carrington 1.2.840.114 350.1.13.10 4.2.7.2.686 [id number] [facility] 2019-11-29 15:40:20 2019-11-29 15:55:20 Office Visit Kirsty [facility] Surgical Specialjuanjo Carrington 1.2.840.114 350.1.13.10 4.2.7.2.686 [id number] [facility] 2019-11-29 15:45:00 2019-11-29 15:45:00 [facility] [id number] [facility] 2019-11-22 15:15:00 2019-11-22 15:15:00 Outpatient R COLLIN MADISON [facility] [id number] [facility] 2019-11-22 14:54:35 2019-11-22 15:09:35 Office Visit Kirsty [facility] Surgical Specialjuanjo Carrington 1.2.840.114 350.1.13.10 4.2.7.2.686 [id number] [facility] 2019-11-20 16:23:00 2019-11-20 18:03:00 Emergency Deepa Anguiano [facility] [id number] 350.1.13.10 4.2.7.2.686 [id number] [facility] 2018-09-26 06:43:00 2018-09-29 10:09:00 Hospital Encounter BrynJose stewartio Tarun [facility] 1.2.840.114 350.1.13.10 4.2.7.2.686 [id number] 2018-09-26 06:43:00 2018-09-29 10:09:00 Hospital Encounter BrynJose stewartio Tarun [facility] 1.2.840.114 350.1.13.10 4.2.7.2.686 [id number] [facility] Results Test Description Test Time Test Comments Results Result Comments Source XR PELVIS <3 VW 19:17:41 ORDERING PHYSICIAN: SARA THURMAN HISTORY: ?left hip pain COMPARISON: None available. TECHNIQUE: ?Single AP pelvic radiograph. FINDINGS: ? No acute displaced pelvic or left hip fracture. Intact sacroiliac jointsand pubic symphysis. Mild bilateral hip osteoarthritis with osteophytosis.Scattered fluid within the pelvis. [facility] CT CHEST PULMONARY ANGIOGRAM 05:47:14 Ordering physician: JIMMIE THORNTON Indication: Chest pain, short of breath, elevated d-dimer Comparison: Chest radiograph dated Technique: CTA of the chest was performed following the administration ofintravenous contrast material. Three-dimensional reformats were generatedfollowing completion of the exam. CT scan was performed according to ALARA(as low as reasonably achievable) policy. Findings: The visualized thyroid gland is within normal limits. There is nothoracic aortic aneurysm or dissection. 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 The heart is normal in size without significantpericardial effusion. No filling defect is appreciated in the pulmonaryarteries to the level of the distal segmental arteries. No pathologicallyenlarged mediastinal or hilar lymph nodes are identified. No acute process is identified in the upper abdomen. The patient is statuspost gastric sleeve procedure. No acute pulmonary process is identified.Bone windows through the chest demonstrate no osseous destructive lesion. [facility] VW [id number] 21:32:15Her radial head is in normal alignment [facility]UnThe [facility] ELBOW <3 VW [id number] 21:03:18Radial head fracture in good alignment she has a well maintained radial capitellar joint,[facility] FOR[facility]ARM 2 VW [id number] 21:59:28HISTORY: ?Pain. S/P fall. FINDINGS: AP and lateral views of left forearm as well as AP and lateralviews of left elbow are submitted which showed an essentially nondisplacedfracture involving head and neck portions of the radius and essentiallynondisplaced fracture involving tip of the ulnar styloidwith moderateelbow joint effusion (hemarthrosis). CONCLUSIONS: Fracture head/neck of the radius andulnar styloid withmoderate left elbow joint effusion area [facility], Radiant Results Inft User - 11/20/2019 5:00 PM CDTHISTORY: Pain. S/P fall.FINDINGS: AP and lateral views of left forearm as well as AP and lateralviews of left elbow are submitted which showed an essentially nondisplacedfracture involving head and neck portions of the radius and essentiallynondisplaced fracture involving tip of the ulnar styloid with moderateelbow joint effusion (hemarthrosis).CONCLUSIONS: Fracture head/neck of theradius and ulnar styloid withmoderate left elbow joint effusion area [facility] [id number] 17:56:00* Test Item Value Reference Range Interpretation Comme [facility] Rubella screen IgG (test code = 7884199745) Positive Negative KATHI (test code = KATHI) Positive - Indicat es the patient was exposed to Rubella through infection or vaccination.Negative - Indicates the patient could be susceptible to Rubella infection.Equivocal - A second specimen should be sent. [facility] WITH [id number] 15:52:00* Test Item Value Reference Range Interpretation Comme [facility] HIV Semi-quantitative (test code = 48576-7) Negative Negative KATHI (test code = KATHI) Non-reactive for HIV-1 antigen and HIV-1/HIV-2 antibodies.?No laboratory evidence of HIV infection.?Repeat in 2-4 weeks if acute HIV infection is suspected. [facility] [id number] 14:07:00 * Test Item Value Reference Range Interpretation Comme [facility] Rubella screen IgG (test code = 7016315285) Positive Negative KATHI (test code = KATHI) Positive - Indicat es the patient was exposed to Rubella through infection or vaccination.Negative - Indicates the patient could be susceptible to Rubella infection.Equivocal - A second specimen should be sent. [facility] - SYPHILIS [id number] 14:06:00* Test Item Value Reference Range Interpretation Comme [facility] Syphilis IgG/IgM (test code = 13201-9) Non-reactive Non-reactive KATHI (test code = KATHI) Non-reactive - No serologic evidence of T. pallidum infection. Cannot exclude incubating or early syphilis. Submit a second specimen in 2-4 weeks if syphilis is clinically suspected.Equivocal - Further testing to follow.Reactive - Further testing to follow. Lab Interpretation (test code = 41183-6) [facility] WITH [id number] 05:53:00* Test Item Value Reference Range Interpretation Comme nts WBC (test code = 6690-2) See_Comment H [Automated message] The system which generated this result transmitted reference range: 4.30 - 11.10 10*3/?L. The reference range was not used to interpret this result as normal/abnormal. RBC (test code = 789-8) See_Comment [Automated message] The system which generated this result transmitted reference range: 3.93 - 5.25 10*6/?L. The reference range was not used to interpret this result as normal/abnormal. HGB (test code = 718-7) 11.2 g/dL 11.6-15 L HCT (test code = 4544-3) 36.3 % 35.7-45.2 MCV (test code = 787-2) 86.6 fL 80.6-95.5 MCH (test code = 785-6) 26.7 pg 25.9-32.8 MCHC (test code = 786-4) 30.9 g/dL 31.6-35.1 L RDW-SD (test code = 88125-4) 39.3 fL 39-49.9 RDW-CV (test code = 788-0) 12.5 % 12-15.5 PLT (test code = 777-3) See_Comment [Automated message] The system which generated this result transmitted reference range: 166 - 358 10*3/?L. The reference range was not used to interpret this result as normal/abnormal. MPV (test code = 42677-3) 10.7 fL 9.5-12.9 NRBC/100 WBC (test code = 3269198322) See_Comment [Automated message] The system which generated this result transmitted reference range: 0.0 - 10.0 /100 WBCs. The reference range was not used to interpret this result as normal/abnormal. NRBC x10^3 (test code = 3698202214) <0.01 See_Comment [Automated message] The system which generated this result transmitted reference range: 10*3/?L. The reference range was not used to interpret this result as normal/abnormal. GRAN MAT (NEUT) % (test code = 770-8) 74.0 % IMM GRAN % (test code = 4203159971) 0.50 % LYMPH % (test code = 736-9) 18.8 % MONO % (test code = 5905-5) 5.9 % EOS % (test code = 713-8) 0.5 % BASO % (test code = 706-2) 0.3 % GRAN MAT x10^3(ANC) (test code = 1475987075) 12.98 10*3/uL 1.88-7.09 H IMM GRAN x10^3 (test code = 5584801244) 0.08 10*3/uL 0-0.06 H LYMPH x10^3 (test code = 731-0) 3.30 10*3/uL 1.32-3.29 H MONO x10^3 (test code = 742-7) 1.03 10*3/uL 0.33-0.92 H EOS x10^3 (test code = 711-2) 0.08 10*3/uL 0.03-0.39 BASO x10^3 (test code = 704-7) 0.05 10*3/uL 0.01-0.07 Lab Interpretation (test code = 46675-5) Abnormal [facility] CORD [id number] 21:31:00* Test Item Value Reference Range Interpretation Comme nts VENOUS BASE EXCESS, CORD (test code = 3797715377) mEq/L VENOUS PH, CORD (test code = 0191413123) 7.25-7.45 VENOUS PC02, CORD (test code = 6055578714) See_Comment [Automated messa ge] The system which generated this result transmitted reference range: 27 - 49 mmHg. The reference range was not used to interpret this result as normal/abnormal. VENOUS PO2, CORD (test code = 7715145904) See_Comment [Automated me ssage] The system which generated this result transmitted reference range: 17 - 41 mmHg. The reference range was not used to interpret this result as normal/abnormal. VENOUS BICARBONATE, CORD (test code = 3228533062) See_Comment [Automated messa ge] The system which generated this result transmitted reference range: 12 - 29 mEq/L. The reference range was not used to interpret this result as normal/abnormal. [facility] [id number] 21:30:00* Test Item Value Reference Range Interpretation Comme nts BASE EXCESS, CORD (test code = 3705028519) mEq/L AC PH, CORD (BEAKER) (test code = 0856142100) 7.18-7.38 PC02, CORD (test code = 0381690513) See_Comment [Automated messa ge] The system which generated this result transmitted reference range: 32 - 66 mmHg. The reference range was not used to interpret this result as normal/abnormal. PO2, CORD (test code = 3504788647) See_Comment H [Automated messa ge] The system which generated this result transmitted reference range: 10 - 30 mmHg. The reference range was not used to interpret this result as normal/abnormal. BICARBONATE, CORD (test code = 9036170359) See_Comment [Automated me ssage] The system which generated this result transmitted reference range: 17 - 27 mEq/L. The reference range was not used to interpret this result as normal/abnormal. Lab Interpretation (test code = 89852-0) [facility] Surface [id number] 15:00:00 * Test Item Value Reference Range Interpretation Comme nts HBsAg Semi-Quantitative (elkin t code = 5195-3) [facility] ONCE [id number] 14:04:01 * Test Item Value Reference Range Interpretation Comme nts ABO & RH (test code = 20) B POSITIVE Performed at [facility] Laboratory Services - [facility] Blood [address] [address]Itap Free: [phone] No. [id number] IAT (test code = 1185) Negative Performed at [facility] Laboratory Services - [facility] Blood [address] [address]Rlfe Free: [phone] No. [id number] [facility] Notes Date/Time Note Provider Source 2023-10-09 16:21:00 Pt given printed and verbal discharge instructions regarding pain of left hip, encouraged hydration. Prescriptions provided. Pt verbalized understanding of instructions, pt awake alert oriented, resp reg unlabored, skin w/d, color appropriate for race, moves all ext well,pt encouraged to follow up with pcp. Advised to seek medical attention for new/prolonged/worsening of symptoms. No adverse reaction to meds given in ER noted upon discharge. Awake, alert oriented, resp reg unlabored, skin w/d, pt leaving amb with steady gait, in no apparent distress. [facility] 2023-10-09 12:17:00 Patient states: "I've been having left low back pain since 2 weeks now. A couple of nights ago I passed out in the shower and it made the pain worse." Patient states she took Hydrocodone at 11AM but no relief. T Rachel Flores RN [facility] 2023-10-09 12:15:00 [facility] Emergency Department Note Patient Name: Cris Pickett Date of : 1985 38 year old female Treatment Room: [place] [address]/[id number] Primary Care Physician: Harris Nazario Patient Escorted by: Family [5] Mode of Arrival: Personal means [1] EMS Treatment Prior to ED Arrival: ANALYTICS DIRECTOR treatment: Medication (comment) ANALYTICS DIRECTOR treatment comments: Hydrocodone taken at 11AM as per patient Travel and Exposure Screening: Symptoms Does patient have any of these symptoms?: (not recorded) Exposure Screening Has patient had contact with someone with a communicable disease in the last month?: (not recorded) Diseases exposed to:: (not recorded) Is Patient ?: (not recorded) Exposure Date: (not recorded) Chief Complaint: Chief Complaint Patient presents with Back Pain History of Present Illness: The patient presents from home for evaluation for left hip and left leg pain has been getting worse for the past 4 days. She reports she was seen here several days ago after she had a fall in the shower and was worked up for syncope. She was sent home with pain medication and reports she took a [place] around 11 AM and she took a Valium and naproxen around 5 AM. She reports that is not helping with her pain. No loss of bowel or bladder function. No dysuria or hematuria. The pain is worse with bending and movement and is better when she is still. She did have a family member drive her to the ER. She is currently on her menstrual cycle. Here for evaluation. Past Medical History/Immunizations: Past Medical History: Diagnosis Date Anxiety Depression Diabetes mellitus GDM 2010 Headache after spinal puncture 09/27/2018 Hypertension during in 2011; no HTN outside of Menstrual disorder irregular periods Pap smear abnormality of cervix 2011 normal after repeat- [place] Urinary incontinence Tetanus received in last 5 years: Unknown Allergies: Allergies Allergen Reactions Penicillin Anaphylaxis Past Social History: Tobacco Use Never smoked or used smokeless tobacco. Alcohol Use No. Comments: social Drug Use No. Sexual Activity Sexually active; Partners: Male; Control/Protection: None. Comments: Rios- last intercourse 09/16/18 Past Surgical History: Past Surgical History: Procedure Laterality Date APPENDECTOMY 1990 DILATION AND CURETTAGE (SHX) 2010 THYROIDECTOMY 05/08 removed due to nodules Review of Systems: Review of Systems Constitutional: Negative for chills and fever. Respiratory: Negative for cough. Cardiovascular: Negative for chest pain. Gastrointestinal: Negative for abdominal pain. Genitourinary: Negative for dysuria. Musculoskeletal: Positive for arthralgias. Negative for neck pain and neck stiffness. Skin: Negative for wound. Neurological: Negative for dizziness. Psychiatric/Behavioral: Negative for agitation. Endocrine: Negative for goiter. Physical Exam: ED Triage Vitals [10/09/23 1217] Weight 77.1 kg (170 lb) Actual or estimated Estimated by patient/family report Height 1.676 m (5' 6") BP (!) 141/101 Pulse 130 Resp 17 Temp 37 ?C (98.6 ?F) Temp source Oral SpO2 100 % Measured on Room air Physical Exam Radiology: XR PELVIS <3 VW Final Result ORDERING PHYSICIAN: SARA OCHOA HISTORY: left hip pain COMPARISON: None available. TECHNIQUE: Single AP pelvic radiograph. FINDINGS: No acute displaced pelvic or left hip fracture. Intact sacroiliac joints and pubic symphysis. Mild bilateral hip osteoarthritis with osteophytosis. Scattered fluid within the pelvis. IMPRESSION 1. No acute displaced pelvic or left hip fracture. 2. Mild bilateral hip posterior arthritis. RL: 326 AFC: 54115 END OF REPORT Lab Results: Lab Results - No data to display EKG: If EKG completed, see Procedure Note. Orders and Treatments: Orders Placed This Encounter Procedures XR PELVIS <3 VW Orders Placed This Encounter Medications FENTanyl PF (SUBLIMAZE (PF)) injection 50 mcg dexamethasone sod phos PF injection 10 mg diazePAM (VALIUM) tablet 5 mg gabapentin (NEURONTIN) capsule 300 mg FENTanyl PF (SUBLIMAZE (PF)) injection 100 mcg methocarbamoL (ROBAXIN) tablet 1,000 mg Lidocaine (LIDOCARE) 4 % patch 1 Patch methocarbamoL 1,000 mg Tab First Provider Eval: ED Events Date/Time Event User Comments 10/09/23 1218 Medical Screening Begins MINDA RUIZ DO -- 10/09/23 1218 First Provider Evaluation MINDA RUIZ DO -- ED COURSE Diagnosis/Impression as of 10/09/23 1614 Pain of left hip Procedures: Procedures MDM: Medical Decision Making The patient presents from home for evaluation for left hip and leg pain that has been slowly worsening with possible days. She reports she was seen here several days ago after she had a syncopal episode while in the shower. She was discharged home with pain medication and reports it is not helping. No loss of bowel or bladder function. No dysuria or hematuria. She last took her [place] around 11 AM and had a Valium and naproxen around 5 AM. Vital signs are stable in ER. She has no vertebral body tenderness to her lumbar spine. Her pelvis is stable and not tender but she does have pain with movement of her left hip. Low concern for fracture however will obtain an x-ray. No concern for cauda equina syndrome. Will also give pain medication here in the ER. Anticipate discharge home later. 1614 - the patient is doing well here in the EC. Xray shows no acute osseous injuries. She is feeling better after medications given here in the EC. She remains stable here in the EC and is ok for dc home with pcp f/u. Problems Addressed: Pain of left hip: acute illness or injury Amount and/or Complexity of Data Reviewed Radiology: ordered and independent interpretation performed. Decision-making details documented in ED Course. Risk OTC drugs. Prescription drug management. Parenteral controlled substances. Flowsheet Documentation: Scoring Tools: No data recorded Disposition/Condition: ED Disposition ED Disposition Disch - Home Condition Stable Comment -- Discharge Medications: Patient's Medications START taking these medications METHOCARBAMOL 1,000 MG TAB Take 1,000 mg by mouth every 6 (six) hours as needed for Pain (scale 1-3). CONTINUE taking these medications which have NOT CHANGED ACETAMINOPHEN-CODEINE 300-30 MG TABLET Take 1 tablet by mouth every 4 (four) hours as needed for Pain (scale 4-6). Indications: acute pain [id number]-CZ FF 50-325-40 MG TABLET Take 1 tablet by mouth every 6 (six) hours as needed for Pain (scale 7-10) (headache). DIAZEPAM 5 MG TABLET Take 1 tablet by mouth 3 (three) times daily as needed for Muscle Spasms. DOCUSATE CALCIUM 240 MG CAPSULE Take 1 capsule by mouth once daily as needed for Constipation. HYDROCODONE-ACETAMINOPHEN 10-325 MG TABLET Take 1 tablet by mouth every 6 (six) hours as needed for Pain (scale 7-10) for up to 7 days. Indications: acute pain IBUPROFEN 600 MG TABLET Take 1 tablet by mouth every 6 (six) hours as needed for Pain (scale 1-3) or Pain (scale 4-6) (Pain). Take with food or milk. IRON FUM & P-FA-VIT B & C NO.9 (INTEGRA PLUS) 125 MG IRON- 1 MG CAP Take 1 capsule by mouth daily. NAPROXEN SODIUM 550 MG TABLET Take 1 tablet by mouth in the morning and 1 tablet in the evening. Take with meals. START taking Modified Medications as Prescribed No medications on file STOP taking these medications No medications on file Follow-up: Electronically signed by: Minda Ruiz DO 10/09/23 1614 [facility] 2023-10-07 01:41:37 Pt given printed and verbal discharge instructions regarding syncope Prescriptions provided Discussed norco side affects and to avoid driving/operating machinery/or engaging in activities requiring alertness while taking. Pt verbalized understanding of instructions, pt awake alert oriented, resp reg unlabored, skin w/d, color appropriate for race, moves all ext well,pt encouraged to follow up with pcp Advised to seek medical attention for new/prolonged/worsening of symptoms No adverse reaction to meds given in ER noted upon discharge Awake, alert oriented, resp reg unlabored, skin w/d, pt leaving amb with steady gait, in no apparent distress, T Femi Niño RN [facility] 2023-10-06 18:41:24 CC: patient presents to the ER with complaints of left sided leg pain that radiates from the buttocks to the foot. Patient states she also fell and passed out in the shower. Patient took tinazidine and gabapentin ANALYTICS DIRECTOR. Awake, alert, oriented, resp reg unlabored, skin warm and dry, color appropriate for race, moves all ext without difficulty, amb without assistance. Appears in no distress. Gina Perla RN [facility] 2023-08-16 11:06:35 Chief Complaint Patient presents with Follow-up Discuss medications and hair loss Cat Gray LVN [facility]
[2023-10-11] MEDS ORDERED: ONDANSETRON 4 MG/2 ML VIAL ONE (11:28)
[2023-10-11] MEDS ORDERED: HYDROMORPHONE HCL 1 MG/ML INJ ONE (11:28)
[2023-10-11 11:47] LABS: Absolute Eosinophils 0.1 K/uL (0-0.5); Absolute Lymphocytes (CBC) 3.1 K/uL (0.7-4.9); Absolute Monocytes 0.4 K/uL (0.1-1.3); Absolute Neutrophil 4.8 K/uL (1.8-8.0); Basophils % 0.4 % (0-1.3); Eosinophils % 1.1 % (0-4.4); Hematocrit 39.1 % (36.0-45.0); Hemoglobin 12.5 g/dL (12.0-15.0); Lymphocytes % 37.1 % (15.3-44.8); MCH 27.2 pg (27.0-35.0); MCHC 31.9 g/dL (32.0-36.0); MCV 85.3 fL (80-100); Monocytes % 4.3 % (3.3-12.3); Neutrophils % 57.1 % (41.7-73.7); Platelets 318 thou/uL (152-406); RBC Red Blood Cell Count 4.58 M/uL (3.86-4.86); Red Cell Distribution Width 13.5 % (12.1-15.2)
[2023-10-11 12:03] LABS: Albumin 4.1 g/dL (3.4-5.0); Albumin/Globulin Ratio 1.3 (1.1-1.8); Anion Gap 8.7 mEq/L (5.0-15.0); Bilirubin Total 0.7 mg/dL (0.2-1.0); Globulin 3.2 g/dL (2.3-3.5); Potassium 3.7 mEq/L (3.5-5.1); Protein, Total 7.3 g/dL (6.4-8.2)
--- NOTE | 2023-10-11 13:37 | RAD REPORT ---
EXAM DESCRIPTION: CTAngio Aorta For Dissection - 10/11/2023 1:18 pm CLINICAL HISTORY: back pain/ leg pain COMPARISON: No comparisons TECHNIQUE: CTA of the abdomen and pelvis was performed with IV contrast. MIPS were created. All CT scans are performed using dose optimization technique as appropriate and may include automated exposure control or mA/KV adjustment according to patient size. FINDINGS: Thorax: Chest Wall: No abnormal mass. Absent right lobe of the thyroid. Lungs: No acute abnormality. Pleura: No effusions or pneumothorax. Disha/Mediastinum: No lymphadenopathy. Aorta/Pulmonary Arteries: Aberrant right subclavian artery. No aortic aneurysm or dissection. Heart: Normal size. Abdomen/Pelvis: Liver: Hepatic steatosis. Biliary: Distended gallbladder with cholelithiasis. Stomach: Partial gastrectomy. Duodenum: No significant focal abnormality. Pancreas: No significant abnormality. Spleen: No significant abnormality. Adrenal: No suspicious lesions. Kidney/ureter: No hydronephrosis. No renal calculi. Retroperitoneum: No retroperitoneal adenopathy. Vascular: No aneurysm. Bowel: No significant focal abnormality. Peritoneum: No ascites or free air. Bladder: Grossly unremarkable. Reproductive: No adnexal masses. Bones: No acute fracture. Other: n/a IMPRESSION: 1. No aortic aneurysm, aortic dissection, or pulmonary embolus identified. 2. Cholelithiasis with distended gallbladder. No pericholecystic inflammatory changes. No loss, this could still represent acute cholecystitis. Correlate clinically and with LFTs.
--- NOTE | 2023-10-11 13:59 | RAD REPORT ---
EXAM DESCRIPTION: US - Extremity Venous Uni Ltd - 10/11/2023 1:46 pm CLINICAL HISTORY: Left leg pain COMPARISON: None. TECHNIQUE: Real-time sonographic evaluation of the left lower extremity deep venous system was perfo rmed. FINDINGS: Normal compressibility, flow augmentation, phasic flow and spontaneous flow is identified in the left lower extremity deep venous system. No intraluminal filling defects seen. IMPRESSION: No DVT in the left lower extremity.
[2023-10-11] MEDS ORDERED: KETAMINE HCL IN 0.9 % NACL 50 MG/5 ML SYRINGE IV ONE ×2 (14:09→15:32)
--- NOTE | 2023-10-11 16:48 | RAD REPORT ---
EXAM DESCRIPTION: MRI - Lumbar Spine [place] - 10/11/2023 4:28 pm CLINICAL HISTORY: Back pain COMPARISON: None. TECHNIQUE: Sagittal T1-weighted, T2-weighted and T2-STIR weighted sequences were obtained. Axial T1 -weighted and heavily T2-weighted sequenceswere obtained through the lumbar disc levels. FINDINGS: Lumbar bodies are normal in height and alignment. No suspicious marrow signal. No paraspin al masses. Conus is normal with no clumping or thickening of the cauda equina. T12-L1 level: No significant findings. L1-2 level: No significant findings. L2-3 level: No significant findings. L3-4 level: No significant findings. L4-5 level: No significant findings. L5-S1 level: Large left paracentral disc protrusion which definitely compresses the traversing left S 1 nerve root and may also compressed additional left-sided nerve roots at the left subarticular zone and lateral recess. There is also mild bilateral neural foraminal narrowing this level. Mild disc hei ght loss is also present. Trace L5 on S1 retrolisthesis. IMPRESSION: Large left paracentral disc protrusion at L5-S1 which compresses one (S1 nerve root) and possibly additional traversing nerve roots.
--- NOTE | 2023-10-11 17:14 | EDPHYS ---
Physician Documentation [facility] Name: Kat Pickett Age: 38 yrs Sex: Female : 1985 Arrival Date: 10/11/2023 Time: 10:52 Bed 13 Private MD: ED Physician Hieu Chambers HPI: 10/10 11:16 This 38 yrs old Female presents to ER via Ambulatory with complaints of Back Pain, Leg rn Pain. 11:16 The patient presents with pain that is acute, with no known mechanism of injury. The rn symptoms are located in the low back. Onset: The symptoms/episode began/occurred 2 week(s) ago. The pain radiates to the left leg. Modifying factors: The patient symptoms are alleviated by nothing, the patient symptoms are aggravated by any movement. Severity of symptoms: At their worst the symptoms were moderate, in the emergency department the symptoms are unchanged. The patient has experienced similar episodes in the past. The patient has been recently seen by a physician:. Pt reports left lower back pain for 2 weeks, seen at [place] [facility], had chest imaging to rule out PE due to elevated d-dimer. Reports continued back pain, now with radiation to left leg. No fever. NO hx of dvt/PE. No trauma. No discoloration. No abd pain. Has had sciatica in the past and is located on same side, just feels worse. . Historical: - Allergies: 11:01 PENICILLINS; nj1 - PMHx: 11:01 None; nj1 - PSHx: 11:01 Appendectomy; nj1 - Immunization history:: Client reports receiving the 2nd dose of the Covid vaccine. - Infectious Disease History:: Denies. - Social history:: Smoking status: Patient denies any tobacco usage or history of. - Family history:: not pertinent. - Hospitalizations: : No recent hospitalization is reported. ROS: 11:16 Constitutional: Negative for fever, chills, and weight loss, Cardiovascular: Negative rn for chest pain, palpitations, and edema, Respiratory: Negative for shortness of breath, cough, wheezing, and pleuritic chest pain, Abdomen/GI: Negative for abdominal pain, nausea, vomiting, diarrhea, and constipation, Back: + back pain MS/Extremity: Negative for injury and deformity, + left leg pain Skin: Negative for injury, rash, and discoloration, Neuro: Negative for headache, weakness, numbness, tingling, and seizure, Exam: 11:16 Constitutional: This is a well developed, well nourished patient who is awake, alert, rn appears in pain, but able to get into bed on her own power. Head/Face: Normocephalic, atraumatic. Cardiovascular: Regular rate and rhythm. No pulse deficits. Respiratory: No increased work of breathing, no retractions or nasal flaring. Abdomen/GI: Soft, non-tender Back: No spinal tenderness. MS/ Extremity: Pulses equal, no cyanosis. Neuro: Awake and alert, GCS 15, oriented to person, place, time, and situation. Cranial nerves II-XII grossly intact. Motor strength 5/5 in all extremities. Sensory grossly intact. Antalgic gait. Vital Signs: 10:58 BP 139 / 97; Pulse 96; Resp 18; Temp 98.1(TE); Pulse Ox 96% ; Weight 77.11 kg; Height 5 nj1 ft. 6 in. ; Pain 10/10; 14:15 BP 120 / 87; Pulse 77; Resp 18; Pulse Ox 100% on R/A; ph 15:30 BP 114 / 69; Pulse 89; Resp 18; Pulse Ox 98% on R/A; ph 17:00 BP 110 / 70; Pulse 69; Resp 18; Pulse Ox 98% on R/A; ph 18:30 BP 112 / 79; Pulse 87; Resp 18; Temp 97.9; Pulse Ox 98% on R/A; ph 10:58 Body Mass Index 27.44 (77.11 kg, 167.64 cm) nj1 10:58 Pain Scale: Adult nj1 MDM: 10:56 Patient medically screened. rn 13:47 ED course: Pain not improved with Dilaudid. Patient still rocking in pain. Multiple rn medications tried at other visits, spoke with patient and , amenable to trying ketamine as she has not tried it. Will give 0.25 mg/kg pain dose and reassess.. 13:49 ED course: CT showed cholelithiasis with a distended gallbladder. Went back to reassess rn patient, no abdominal tenderness in the right upper quadrant or epigastric region. No abdominal tenderness at all. LFTs normal. CBC normal. Lipase normal. Likely incidental finding given patient's presentation with left lower back pain and radiation to the leg with lack of abdominal complaints.. 14:53 Differential diagnosis: arthritis, Fatigue Fracture Osteoarthritis Peptic Ulcer rn ruptured disc, sprain, Ureterolithiasis Radiculopathy, cholecystitis, cholelithiasis, DVT. Data reviewed: vital signs, nurses notes, lab test result(s), radiologic studies, CT scan, ultrasound, and as a result, I will discharge patient. Counseling: I had a detailed discussion with the patient and/or guardian regarding the historical points, exam findings, and any diagnostic results supporting the discharge/admit diagnosis, lab results, radiology results, the need for outpatient follow up, to return to the emergency department if symptoms worsen or persist or if there are any questions or concerns that arise at home. Response to treatment: the patient's symptoms have markedly improved after treatment, and as a result, I will discharge patient. Special discussion: I discussed with the patient/guardian in detail that at this point there is no indication for admission to the hospital. It is understood, however, that if the symptoms persist or worsen the patient needs to return immediately for re-evaluation. Further emergent ED testing is not indicated at this point in time. I discussed with the patient/guardian in detail the need to arrange with the PCP or specialist further outpatient testing, MRI, Based on the history and exam findings, there is no indication for further emergent testing or inpatient evaluation. I discussed with the patient/guardian the need to see the back specialist for further evaluation of the symptoms. 15:31 ED course: Patient unable to perform MRI due to pain, will redosed ketamine and try to rn get MRI. 17:58 ED course: We initiated transfer for paracentral disc herniation and nerve root rn compression, initially patient on board, after she had a discussion with her spouse in private they change their mind and wish to be discharged. Understand risk of discharge and continuation of pain or worsening of pain. I spoke with her PCP Dr. Lugo, he will see her in clinic tomorrow and try to organize spinal follow-up for consultation. Patient has Valium, hydrocodone, NSAIDs to take at home. Will not add more medication. Patient doing better than when she presented but still in some pain. Transfer was canceled at patient's request. 10/10 11:16 Order name: Test, Urine; Complete Time: 18:37 rn 10/10 11:16 Order name: Urinalysis w/ reflexes; Complete Time: 18:37 rn 10/10 11:45 Order name: Comprehensive Metabolic Panel; Complete Time: 12:39 EDMS 10/10 11:45 Order name: Lipase; Complete Time: 12:39 EDMS 10/10 11:45 Order name: CBC with Automated Diff; Complete Time: 12:39 EDMS 10/10 12:45 Order name: Angio Aorta For Dissection; Complete Time: 13:41 EDMS 10/10 13:15 Order name: Extremity Venous Uni Ltd; Complete Time: 14:14 EDMS 10/10 15:05 Order name: Lumbar Spine Wo Con; Complete Time: 17:12 EDMS 10/10 11:16 Order name: IV Saline Lock; Complete Time: 11:38 rn 10/10 11:16 Order name: Labs collected and sent; Complete Time: 11:38 rn Administered Medications: 11:38 Drug: HYDROmorphone IVP 1 mg IVP once Route: IVP; Site: right antecubital; ph 12:00 Follow up: Response: No adverse reaction; Pain is unchanged, physician notified; RASS: ph Drowsy (-1) 11:38 Drug: Ondansetron IVP 4 mg IVP once; over 2 minutes Route: IVP; Site: right antecubital;ph 18:51 Follow up: Response: No adverse reaction ph 14:15 Drug: Ketamine IVP 20 mg IVP once Route: IVP; Site: right antecubital; ph 14:30 Follow up: Response: No adverse reaction; Pain is decreased; RASS: Drowsy (-1) ph 15:41 Drug: Ketamine IVP 10 mg IVP once Route: IVP; Site: right antecubital; ap3 16:15 Follow up: Response: No adverse reaction; RASS: Drowsy (-1) ph Disposition Summary: 10/11/23 18:01 Discharge Ordered Notes: Location: Home(10/11/23 18:01) rn Problem: an ongoing problem(10/11/23 18:01) rn Symptoms: have improved(10/11/23 18:01) rn Condition: Stable(10/11/23 18:01) rn Diagnosis - 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 rn - Intervertebral disc disorders with radiculopathy, lumbosacral region rn Followup: rn - With: Prezas, Sourav, DO - When: As needed - Reason: Recheck today's complaints, Re-evaluation by your physician Discharge Instructions: - Discharge Summary Sheet rn - Herniated Disk rn - Lumbosacral Radiculopathy rn Forms: - Medication Reconciliation Form rn - Antibiotic rn eligibility - Prescription Opioid Use rn - Patient Portal Instructions rn - Leadership Thank You Letter rn Signatures: Dispatcher [employer] EDMS Hieu Chambers MD MD rn Hall, Patricia, RN RN Ya Ya RN RN ap3 Suzette Jorge RN RN nj1 Corrections: (The following items were deleted from the chart) 12:43 12:43 Dissection W/Wo Con ordered. EDMS EDMS 13:50 13:49 ED course: CT showed cholelithiasis with a distended gallbladder. Went back to rn reassess patient, no abdominal tenderness in the right upper quadrant or epigastric region. No abdominal tenderness at all. LFTs normal. CBC normal. Lipase normal. Likely incidental finding.. rn 15:02 14:57 Home rn rn 15:02 14:57 an ongoing problem rn rn 15:02 14:57 have improved rn rn 15:02 14:57 Stable rn rn 15:02 14:57 Radiculopathy, lumbosacral region rn rn 15:02 14:57 Low back pain rn rn 16:58 16:58 Test, Urine+UC.LAB.BRZ ordered. EDMS EDMS 16:58 16:58 Urinalysis+U.LAB.BRZ ordered. EDMS EDMS 16:58 16:58 Angio Aorta For Dissection+CT.RAD.BRZ ordered. EDMS EDMS 16:58 16:58 Extremity Venous Uni Ltd+US.RAD.BRZ ordered. EDMS EDMS 17:04 17:04 Lumbar Spine Wo Con+MRI.RAD.BRZ ordered. EDMS EDMS 17:47 16:58 CBC+H.LAB.BRZ ordered. EDMS EDMS 17:47 16:58 COMPREHENSIVE METABOLIC PANEL+C.LAB.BRZ ordered. EDMS EDMS 17:47 16:58 LIPASE+C.LAB.BRZ ordered. EDMS EDMS
--- NOTE | 2023-10-11 17:14 | ER ---
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 Seen at [place] ED x2 over the weekend. Saw PCP today, instructed to come to ED for further evaluation and treatment. Coronavirus screen: Vaccine status: Patient reports receiving the 2nd dose of the covid vaccine. Ebola Screen: Patient denies travel to an Ebola-affected area in the 21 days before illness onset. Initial Sepsis Screen: Does the patient meet any 2 criteria? HR > 90 bpm. No. Patient's initial sepsis screen is negative. Does the patient have a suspected source of infection? No. Patient's initial sepsis screen is negative. Risk Assessment: Do you want to hurt yourself or someone else? Patient reports no desire to harm self or others. Onset of symptoms was September 2023. 10:58 Method Of Arrival: Ambulatory nj1 10:58 Acuity: NICO 2 nj1 Historical: - Allergies: 11:01 PENICILLINS; nj1 - PMHx: 11:01 None; nj1 - PSHx: 11:01 Appendectomy; nj1 - Immunization history:: Client reports receiving the 2nd dose of the Covid vaccine. - Infectious Disease History:: Denies. - Social history:: Smoking status: Patient denies any tobacco usage or history of. - Family history:: not pertinent. - Hospitalizations: : No recent hospitalization is reported. Screenin:42 [facility] ED Fall Risk Assessment (Adult) History of falling in the last 3 months, ph including since admission No falls in past 3 months (0 pts) Confusion or Disorientation No (0 pts) Intoxicated or Sedated No (0 pts) Impaired Gait No (0 pts) Mobility Assist Device Used No (0 pt) Altered Elimination No (0 pt) Score/Fall Risk Level 0 - 2 = Low Risk Oriented to surroundings, Maintained a safe environment, Hourly rounding (assess needs \T\ fall precautionary measures) done. Abuse screen: Denies threats or abuse. Denies injuries from another. Nutritional screening: No deficits noted. Tuberculosis screening: No symptoms or risk factors identified. Assessment: 11:41 General: Appears in no apparent distress. uncomfortable, Behavior is calm, cooperative. ph Pain: Complains of pain in left leg. Neuro: Shankar Agitation-Sedation Scale (RASS): +1 Restless Level of Consciousness is awake, alert, obeys commands, Oriented to person, place, time, situation. Cardiovascular: Capillary refill < 3 seconds in bilateral fingers Patient's skin is warm and dry. Respiratory: Airway is patent Respiratory effort is even, unlabored. Musculoskeletal: Circulation, motion, and sensation intact. Range of motion: intact in all extremities. 13:00 Reassessment: Patient appears in no apparent distress at this time. Patient and/or ph family updated on plan of care and expected duration. Pain level reassessed. Patient is alert, oriented x 3, equal unlabored respirations, skin warm/dry/pink. 15:00 Reassessment: Patient appears in no apparent distress at this time. Patient and/or ph family updated on plan of care and expected duration. Pain level reassessed. Patient is alert, oriented x 3, equal unlabored respirations, skin warm/dry/pink. 17:00 Reassessment: Patient appears in no apparent distress at this time. Patient and/or ph family updated on plan of care and expected duration. Pain level reassessed. Patient is alert, oriented x 3, equal unlabored respirations, skin warm/dry/pink. 18:48 Reassessment: Patient appears in no apparent distress at this time. Patient and/or ph family updated on plan of care and expected duration. Pain level reassessed. Patient is alert, oriented x 3, equal unlabored respirations, skin warm/dry/pink. Vital Signs: 10:58 BP 139 / 97; Pulse 96; Resp 18; Temp 98.1(TE); Pulse Ox 96% ; Weight 77.11 kg; Height 5 nj1 ft. 6 in. ; Pain 10/10; 14:15 BP 120 / 87; Pulse 77; Resp 18; Pulse Ox 100% on R/A; ph 15:30 BP 114 / 69; Pulse 89; Resp 18; Pulse Ox 98% on R/A; ph 17:00 BP 110 / 70; Pulse 69; Resp 18; Pulse Ox 98% on R/A; ph 18:30 BP 112 / 79; Pulse 87; Resp 18; Temp 97.9; Pulse Ox 98% on R/A; ph 10:58 Body Mass Index 27.44 (77.11 kg, 167.64 cm) nj1 10:58 Pain Scale: Adult [facility] ED Course: 10:54 Patient arrived in ED. mr 10:56 Hieu Chambers MD is Attending Physician. rn 11:01 Triage completed. nj1 11:01 Arm band placed on right wrist. nj1 11:06 Pooja Bhandari, TEGNA is Primary Nurse. ph 11:35 Initial lab(s) drawn, by me, sent to lab. Inserted saline lock: 22 gauge in right ph antecubital area, using aseptic technique. Blood collected. Flushed with 10 mL NS. 11:43 Patient has correct armband on for positive identification. Bed in low position. Call ph light in reach. Side rails up X 1. Door closed. Noise minimized. 13:19 Angio Aorta For Dissection In Process Unspecified. EDMS 13:47 Extremity Venous Uni Ltd In Process Unspecified. EDMS 16:30 Lumbar Spine Wo Con In Process Unspecified. EDMS 17:24 attempted to initiate a transfer with the [facility] Transfer Center rang for 4 minutes eb before call was dropped. 17:30 initiated a transfer with Lela from the [facility] transfer Center. eb 18:00 Sourav Lugo DO is Referral Physician. rn 18:50 No provider procedures requiring assistance completed. IV discontinued, intact, ph bleeding controlled, No redness/swelling at site. Pressure dressing applied. Administered Medications: 11:38 Drug: HYDROmorphone IVP 1 mg IVP once Route: IVP; Site: right antecubital; ph 12:00 Follow up: Response: No adverse reaction; Pain is unchanged, physician notified; RASS: ph Drowsy (-1) 11:38 Drug: Ondansetron IVP 4 mg IVP once; over 2 minutes Route: IVP; Site: right antecubital;ph 18:51 Follow up: Response: No adverse reaction ph 14:15 Drug: Ketamine IVP 20 mg IVP once Route: IVP; Site: right antecubital; ph 14:30 Follow up: Response: No adverse reaction; Pain is decreased; RASS: Drowsy (-1) ph 15:41 Drug: Ketamine IVP 10 mg IVP once Route: IVP; Site: right antecubital; ap3 16:15 Follow up: Response: No adverse reaction; RASS: Drowsy (-1) ph Medication: 11:43 VIS not applicable for this client. ph Outcome: 14:57 Discharge ordered by . rn 18:01 Discharge ordered by MD. rn 18:50 Discharged to home via wheelchair, with significant other, ph 18:50 Condition: good 18:50 Discharge instructions given to patient, Instructed on discharge instructions, follow up and referral plans. Demonstrated understanding of instructions, follow-up care, 18:51 Patient left the ED. ph Signatures: Dispatcher [employer] EDMS Oneida Perla, Hieu Gupta MD MD rn Hall, Patricia, RN RN ph [facility] health[facility] RN RN ap3 Sailaja Stevens Norma RN RN nj1
[2023-10-11 18:22] LABS: Sqamous Epithelial <5 /HPF (None Seen); Urine Bacteria None Seen /HPF (<20); Urine Bilirubin NEGATIVE (Negative); Urine Blood Negative (Negative); Urine Clarity Clear (Clear); Urine Color Yellow (Yellow); Urine Culture Reflex Order NOT NEEDED; Urine Glucose NEGATIVE (Negative); Urine Ketones 1+ (Negative); Urine Microscopic Reflex YN ORDER UMIC; Urine Mucus Slight /HPF (None Seen); Urine Nitrite NEGATIVE (Negative); Urine Protein 1+ (Negative); Urine RBC <5 /HPF (None Seen); Urine Urobilinogen Normal (Normal); Urine WBC None Seen /HPF (<5)
[2023-10-11 18:23] LABS: Specific Gravity > 1.030 (1.005-1.030)
[2023-10-12 06:47] VITALS: O2SAT 98
[2023-10-12 06:50] VITALS: BP 112/79; TEMP 97.9
== END 2023-10-11 18:51 | disposition home or self-care (01) ==
LOC: ER 10:52
DX: M51.27 Other intervertebral disc displacement, lumbosacral region (principal); M51.17 Intervertebral disc disorders with radiculopathy, lumbosacral region
CPT/HCPCS: 85025; 81001; 36415; 81025; 83690; 80053; 71275; 74175; 93971; 72148; Q9967; J1170; J2405